=== PATIENT | male | born 1945 | race Caucasian/White ===

== ENCOUNTER 2017-05-10 11:53 | Emergency (ER) | payer MEDICARE ==
[~2017-05-10] VITALS: Ht 182.9 cm; Wt 110.0 kg
[2017-05-10 12:09] VITALS: BP 102/63; PULSE 73; RESP 17; TEMP 97.8; O2SAT 96
[2017-05-10] MEDS ORDERED: OMEP20TA93 PO (12:53)
[2017-05-10] MEDS ORDERED: TEMA30CA PO (12:53)
[2017-05-10] MEDS ORDERED: FLUT50SP EACH NARE (12:53)
[2017-05-10] MEDS ORDERED: CARV6.252 PO (12:53)
[2017-05-10] MEDS ORDERED: DOXA1TAB34 PO (12:53)
[2017-05-10] MEDS ORDERED: SIMV40TA PO (12:53)
[2017-05-10] MEDS ORDERED: ASPI-183 PO (12:54)
[2017-05-10] MEDS ORDERED: MELA1TAB18 PO (12:58)
[2017-05-10] MEDS ORDERED: VITA1000 PO (12:58)
[2017-05-10] MEDS ORDERED: POTA-255 PO (12:58)
[2017-05-10] MEDS ORDERED: FISHCAP4 PO (12:58)
[2017-05-10] MEDS ORDERED: DIPH25TA2 PO (12:58)
[2017-05-10] MEDS ORDERED: DIAZEPAM 10 MG TAB PO ONE (13:45)
[2017-05-10] MEDS ORDERED: KETOROLAC TROMETHAMINE 60 MG/2 ML (IM) VIAL IM ONE (13:45)
[2017-05-10] MEDS ORDERED: DIAZ10 PO (15:32)
--- NOTE | 2017-05-10 15:32 | PD ---
HPI Chief Complaint: Back/ Neck Pain or Injury Time Seen by Provider: 12:45 Travel History International Travel<30 days: No Contact w/Intl Traveler<30days: No Traveled to known affect area: No History of Present Illness HPI Patient is a 72-year-old male who comes in complaining of back pain. He has history of chronic back pain and has had several surgeries and radiofrequency ablation. He says the pain came on 2 days ago while [place] the [place] and was so severe he has been unable to walk. However, he seems to be getting a little bit better as he is able to walk now. He denies any numbness or tingling. He denies any urinary symptoms. He came in hoping that he could get a radiofrequency ablation. Severity is mild. He denies any new injuries. He denies any fever or chills. PFSH Past Medical History Cardiovascular Problems: Yes High Cholesterol: Yes Cerebrovascular Accident: Yes (TIA?) Diminished Hearing: No Gastrointestinal Disorders: Yes GERD: Yes Headaches: Yes Hypertension: Yes Insomnia: Yes Musculoskeletal: Yes Neurologic: Yes Past Surgical History Tonsillectomy: Yes Other Surgery: Yes ([employer]W[place] KNEE REPLACEMENT, SI JOINTS PINNED IN HIPS, RIGHT THYROID REMOVED) Social History Alcohol Use: Yes (BEER) Tobacco Use: No Substance Use: No Allergies-Medications (Allergen,Severity, Reaction): Coded Allergies: rofecoxib (Verified Allergy, Severe, EDEMA, 05/10/17) Reported Meds & Prescriptions Reported Meds & Active Scripts Active Valium (Diazepam) 10 Mg Tab 10 Mg PO TID PRN Reported Potassium (Potassium Gluconate) 600 Mg (99 Mg) Tablet 600 Mg PO HS Diphenhydramine (Diphenhydramine HCl) 25 Mg Tab 50 Mg PO HS Melatonin 10 Mg-1 Mg Tab 10 Mg PO HS Vitamin D-1000 (Cholecalciferol) 1,000 Unit Tab 1,000 Units PO DAILY Fish Oil + D3 (Fish Oil-Cholecalciferol) 1,200-1,000 Mg-Unit Cap 1 Cap PO DAILY Aspirin 325 Mg Tab 325 Mg PO DAILY Carvedilol 6.25 Mg Tab 6.25 Mg PO BID Temazepam 30 Mg Cap 30 Mg PO HS Doxazosin (Doxazosin Mesylate) 4 Mg Tab 4 Mg PO BID Simvastatin 40 Mg Tab 40 Mg PO HS Fluticasone Nasal Flomot 50 Mcg/Act Naspr 100 Mcg EACH NARE DAILY PRN 50 mcg/spray Omeprazole 20 Mg Tab 20 Mg PO BID Review of Systems Except as stated in HPI: all other systems reviewed are Neg General / Constitutional: No: Fever, Chills HENT: No: Headaches, Lightheadedness Cardiovascular: No: Chest Pain or Discomfort Respiratory: No: Shortness of Breath Gastrointestinal: No: Nausea, Vomiting Genitourinary: No: Dysuria, Incontinence Musculoskeletal: Positive: Myalgias, Pain Skin: No Rash, No Change in Pigmentation Neurologic: No: Weakness, Dizziness Physical Exam Narrative GENERAL: Awake and alert, no acute distress. SKIN: Focused skin assessment warm/dry. No wounds or signs of infection. HEAD: Atraumatic. Normocephalic. EYES: Pupils equal and round. No scleral icterus. ENT: No nasal bleeding or discharge. Mucous membranes pink and moist. NECK: Trachea midline. No JVD. CARDIOVASCULAR: Regular rate and rhythm. No murmur appreciated. RESPIRATORY: No accessory muscle use. Clear to auscultation. Breath sounds equal bilaterally. GASTROINTESTINAL: Abdomen soft, non-tender, nondistended. MUSCULOSKELETAL: No obvious deformities. No clubbing. No cyanosis. No edema. Pain to his back with movement. Pain cannot be elicited by palpation. NEUROLOGICAL: Awake and alert. No obvious cranial nerve deficits. Motor grossly within normal limits. Normal speech. PSYCHIATRIC: Appropriate mood and affect; insight and judgment normal. Data Data Last Documented VS Vital Signs Date Time Temp Pulse Resp B/P (MAP) Pulse Ox O2 Delivery O2 Flow Rate FiO2 05/10/17 12:09 97.8 73 17 102/63 (76) 96 Orders Orders Diazepam (Valium) (05/10/17 13:45) Ketorolac Inj (Toradol Inj) (05/10/17 13:45) Ed Discharge Order (05/10/17 15:32) [facility] Medical Decision Making Medical Screen Exam Complete: Yes Emergency Medical Condition: Yes Differential Diagnosis Chronic back pain versus muscle spasm versus sciatica Narrative Course Patient is a 72-year-old male who comes in complaining of back pain. Exam shows pain with movement. I explained to the patient that we do not offer radiofrequency ablation at our hospital. He is offered an MRI, because he is requesting it, however explained that he likely does not need it as he is not having any neurologic symptoms and his symptoms are improving. He says that he will wait till he goes to see his doctor to have an MRI done. He is given Valium and Toradol. He reports feeling better. Discharged with a prescription for Valium. Advised follow-up with his doctors. Advised return to the ED as needed for any worsening symptoms. Diagnosis Primary Impression: Back pain Qualified Codes: M54.5 - Low back pain; G89.29 - Other chronic pain Patient Instructions: Back Pain (ED), General Instructions Additional Instructions: Follow up with your doctors. Take pain medicine as needed. Return to the ED as needed for any worsening symptoms. Scripts Diazepam (Valium) 10 Mg Tab 10 MG PO TID Y for MUSCLE SPASM, #15 TAB 0 Refills Prov: Shayy Dee MD 05/10/17 Disposition: 01 DISCHARGE HOME Condition: Stable Shayy Dee MD May 10, 2017 15:32
== END 2017-05-10 15:50 | disposition home or self-care (01) ==
LOC: NEPC 11:53
DX: M54.5 Low back pain (principal); G89.29 Other chronic pain; I10 Essential (primary) hypertension; K21.9 Gastro-esophageal reflux disease without esophagitis; E78.00 Pure hypercholesterolemia, unspecified; G47.00 Insomnia, unspecified; Z86.79 Personal history of other diseases of the circulatory system; Z86.73 Personal history of transient ischemic attack (TIA), and cerebral infarction without residual deficits; Z87.19 Personal history of other diseases of the digestive system; Z87.39 Personal history of other diseases of the musculoskeletal system and connective tissue; Z86.69 Personal history of other diseases of the nervous system and sense organs
CPT/HCPCS: 96372; 99283; J1885